=== PATIENT | male | born 1960 | race Caucasian/White ===

== ENCOUNTER → 2022-04-10 | Outpatient (CLI) | payer OTHER ==
[2014-08-26 11:37] VITALS: BP 133/76
[~2022-04-10] MED LIST: OXYC1TAB15 PO; SIMV20TA18 PO
--- NOTE | 2022-04-10 10:21 | PDOC1 ---
INITIAL PAIN CONSULT DATE OF SERVICE: DOS: DATE: 04/10/22 TIME: 10:15 CHIEF COMPLAINT: Chief Complaint: Low back and left, greater than right lower extremity pain HISTORY OF PRESENT ILLNESS: 62-year-old male presents with history of pain low back and left greater than right lower extremity for many years after injury in 1979 when he fell and broke his left femur as an intramedullary timi which is really held up very well and has healed very nicely and patient reports no significant pain in the hip or thigh itself but the pain in the low back radiating into the left lower extremity posterior gluteus posterior thigh especially in the posterior calf on both legs is very painful and has been getting worse over the past 6 months or so without any recent injury or accident patient reports worse with walking and standing changing positions getting up from seated position better with sitting or lying in a car for prolonged period greater than an hour or so when he gets out the pain is significant radiating to the lower extremities at that time. Patient reports its a constant sharp in the back changes during the day with activity radiating into the lower extremities as noted and aching in the back as well patient did have an MRI scan of the lumbar spine was reviewed with him today showing severe spinal stenosis L4-5 through L2-3 with a focal posterior left disc retrusion at L5-S1 with diffuse disc bulging and mild bilateral facet degenerative changes well, L4-5 shows severe triangular canal narrowing with essentially obliteration of the canal at that level. Patient has been doing physical therapies also chiropractic treatment twice weekly for the past year or so which helps but only temporarily patient is also been taking Advil and Aleve [id number] neither 1 of which does decrease the pain Tylenol decreases slightly patient reports is better with sitting or laying down and sitting is only for short period does not generally awaken her from sleep at night does not affect his bowel bladder control but does affect his ability walk fairly signif icantly especially when he first gets up although does not use any assistive device such as canes or walkers to ambulate. 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 Patient reports no loss of motor function with significant fatigability of the lower extremity especially on the left side with standing and ambulation greater than 20 to 30 minutes at the most. PAST MEDICAL HISTORY: PMH: Pretension PREVIOUS SURGERIES: Past Surgical Hx: Left femur IM timi placement, hernia repair, right biceps tendon repair CURRENT MEDICATIONS: Current Meds: Active Scripts Medications Dose Route/Sig Max Daily Dose Days Date Category Percocet 5-325 Mg Tablet (Oxycodone/Acetaminophen) 1 Each Tablet 1-2 Tab PO PRN Q4HRS PRN 08/26/14 Reported Simvastatin 20 Mg Tablet 20 Mg PO HS 08/26/14 Reported ALLERGIES; Allergies: Coded Allergies: Sulfa (Sulfonamide Antibiotics) (Verified Allergy, Intermediate, Rash, 08/26/14) FAMILY HISTORY: Family Hx: No major medical problems or conditions that he is aware of SOCIAL HISTORY: Social Hx: Patient does not drink alcohol does not smoke not use any illegal illicit or recreational drugs is lives with spouse and lives locally in [facility], works for the [employer] REVIEW OF SYSTEMS: ROS: Positive for those items mentioned in history of present illness, all systems are reviewed, otherwise negative ,and are complete full and well-documented on patient's chart. PHYSICAL EXAM: VS: Blood pressure is 166/100 pulse 54 respirations 18 temperature 98.5 F height 6 foot 1 inch weight is 226 pounds. PE: PHYSICAL EXAMINATION: GENERAL: The patient is awake, alert, oriented, appropriate, very pleasant in demeanor HEENT: Shows normocephalic, atraumatic. Extraocular movements are intact and symmetrical. Oral cavity: Mucous membranes moist and pink. Dentition is intact. NECK: Shows anterior throat supple without palpable lymphadenopathy noted. Swallow reflex symmetrical. CHEST: Shows normal on inspection. Breath sounds are clear bilaterally, no rales rhonchi or wheezes auscultated. HEART: Shows S1, S2 clear. No murmurs auscultated. ABDOMEN: Soft, nontender, nondistended. No palpable organomegaly is noted. BACK: Shows spine grossly in the midline. Normal-appearing cervical lordotic curvature. There is slightly increased thoracic kyphosis, some minor flattening of the lumbar lordotic curvature. Lumbar paraspinous muscles show symmetrical on inspection, on palpation shows some moderate tenderness diffusely throughout the upper, middle and lower distribution of the paraspinous muscles bilaterally and also into the lower thoracic paraspinous musculature, firm and tender, but without specific trigger points, without radiation of pain. The patient has good rotational motion of the lumbar spine, both laterally as well as extension and flexion without significant difficulty. No tenderness over the spinous processes, sacrum or sacroiliac regions. EXTREMITIES: Lower extremities show deep tendon reflexes 2+ in the patellar and tendo calcaneus tendons. Motor exam is 5 on a scale of 5 with right dorsiflexion, extension, quadriceps and hamstring flexion and 4/5 on the left. Peripheral pulses are 1+ posterior tibial. No peripheral edema is noted bilaterally. Lower extremities are warm and dry to touch, equal in color and appearance. Straight leg raise noted to be positive on the left at appro ximately 45 degrees, decreased with knee flexion, right side is negative. Gaenslen's and Tucker's maneuvers are negative bilaterally as well. The patient is able to stand, stand on his toes out significant difficulty or loss of balance gets up well with some minor assistance from the arms of the chair walks with a slight favoring gait does appear to favor the left lower extremity slightly but not use any assistive device such as canes or walkers to ambulate. SKIN: Shows warm and dry, good turgor. No edema. No sores, rashes or bruising throughout. IMPRESSION: Impression: 62-year-old male with long history of low back pain worse over the past 6 months status post chiropractic treatment, physical therapies, stretching, oral analgesics, heat application without significant reduction in pain and with clinical radiculopathy and L5-S1 dermatomal distribution worse on the left. MRI scan lumbar spine as noted Hypertension Plan: Options were discussed with the patient including continued physical therapies and chiropractic treatment as well as medication management and interventional techniques. Patient would like to pursue interventional techniques. We discussed a lumbar epidural steroid injections description as well as anatomical models to describe the procedure. Patient wait for preauthorization with his insurance provider, once obtained we will have patient return for translaminar approach L5-S1 level lumbar epidural steroid injection with fluoroscopic guidance. In the meantime, patient continue with stretching strength exercises, chiropractic treatment as scheduled and oral analgesics as currently. JACOB HARRIS MD April 10, 2022 10:21
== END | disposition home or self-care (01) ==
LOC: PNCL 08:58
PROVIDERS: ATTEND Anesthesiology
DX: M54.50 Low back pain, unspecified (principal); M79.604 Pain in right leg; E78.00 Pure hypercholesterolemia, unspecified; Z79.899 Other long term (current) drug therapy; Z98.890 Other specified postprocedural states; Z88.8 Allergy status to other drugs, medicaments and biological substances
CPT/HCPCS: 99205; G0463